=== PATIENT | female | born 1955 | race Two or more races ===

== ENCOUNTER 2020-06-10 06:25 | Day surgery (SDC) | payer OTHER | END 2020-06-10 10:50 | disposition home or self-care (01) | LOC: CIR.AMB 06:25 | PROVIDERS: ATTEND Colon & Rectal Surgery | DX: K62.89 Other specified diseases of anus and rectum (principal); K64.2 Third degree hemorrhoids; Z12.11 Encounter for screening for malignant neoplasm of colon ==

== ENCOUNTER 2022-04-19 11:15 | Inpatient (IN) | payer OTHER ==
[~2022-04-19] VITALS: Ht 154.9 cm; Wt 46.3 kg
[2022-04-19] MEDS ORDERED: COZAAR25 MG PO (15:31)
[2022-04-19] MEDS ORDERED: SYNTHROID75 MCG PO (15:31)
[2022-04-19] MEDS ORDERED: D3 + K2 DOTS 11 EACH PO (15:32)
[2022-04-19] MEDS ORDERED: PROLIA60 MG/1 ML (15:32)
[2022-04-24] MEDS ORDERED: MAXIMUM D3325 MCG (08:31)
== END 2022-04-28 13:35 | disposition home or self-care (01) | DRG 331 ==
LOC: O/R 04-24 05:37 → SURH 04-24 07:45
PROVIDERS: ADMIT Colon & Rectal Surgery; ATTEND Colon & Rectal Surgery
PROC: 0DBP4ZZ Excision of Rectum, Percutaneous Endoscopic Approach (ICD-10-PCS; 2022-04-24)
PROC: 0DJD8ZZ Inspection of Lower Intestinal Tract, Via Natural or Artificial Opening Endoscopic (ICD-10-PCS; 2022-04-24)
PROC: 0DTN4ZZ Resection of Sigmoid Colon, Percutaneous Endoscopic Approach (ICD-10-PCS; principal; 2022-04-24 07:45)
DX: K57.32 Diverticulitis of large intestine without perforation or abscess without bleeding (principal); E83.39 Other disorders of phosphorus metabolism; E03.9 Hypothyroidism, unspecified; I10 Essential (primary) hypertension; K64.2 Third degree hemorrhoids; Z86.010 Personal history of colon polyps